=== PATIENT | female | born 1935 | race Caucasian/White ===

== ENCOUNTER → 2020-01-30 11:05 | Outpatient (ROUT) | payer SELFPAY ==
[2020-02-03 06:41] LABS: COVID19 Sendout Not Detected (Not Detected)
== END ==
PROVIDERS: Family Provider Internal Medicine; PCP Internal Medicine; Visit Provider Internal Medicine
DX: Z11.59 Encounter for screening for other viral diseases (principal)
CPT/HCPCS: 87635

== ENCOUNTER → 2021-04-06 12:19 | Outpatient (CLI) | payer MEDICARE, OTHER, SELFPAY ==
--- NOTE | 2021-04-06 | DI.CT.S_ITS ---
PROCEDURE: CT UE LT WO CON INDICATIONS: CANCEROUS MASS LEFT SHOULDER TECHNIQUE: Noncontrast 1-1.5 mm thick sections acquired from the acromioclavicular joint to the inferior scapula, with coronal and sagittal reformatting. COMPARISON: None. FINDINGS: Image quality: Excellent. Bones: No acute, displaced fracture or dislocation. No cortical destruction is appreciated. Mild AC joint arthrosis. Degenerative changes of the visualized cervical spine. Soft tissues: A 13.6 x 7.3 x 6.2 cm mass is seen within or adjacent to the deltoid. No suspicious axillary lymph nodes are appreciated. Centrilobular emphysematous changes of the lungs. IMPRESSION: Soft tissue mass within or adjacent to the deltoid as detailed above, consistent with the patient's known neoplastic process. Dictated by: Rich Guevara M.D. on 04/06/2021 at 16:00 Approved by: Rich Guevara M.D. on 04/06/2021 at 16:05
--- NOTE | 2021-04-06 | DI.MRI.S_ITS ---
PROCEDURE: MR SHOULDER LT WO/W CON INDICATIONS: CANCEROUS MASS OEFT SHOULDER TECHNIQUE: Noncontrast oblique coronal T1 spin echo and T2 fast spin echo with fat saturation, oblique sagittal T1 spin echo and T2 fast spin echo with fat saturation, axial T1 spin echo and T2 fast spin echo with fat saturation through the shoulder. Post-contrast oblique coronal, oblique sagittal, and axial T1 spin echo with fat saturation through the shoulder. COMPARISON: None. FINDINGS: Image quality: Images are degraded by motion artifact. Soft tissues: A 12.9 x 6.9 x 7.5 cm T2 hyperintense/T1 hypointense lesion is seen in the deltoid, which exhibits marked contrast enhancement. No abnormal axillary lymphadenopathy is appreciated. Bones: A 1.9 x 1.1 cm T2 hyperintense/T1 hypointense focus is seen in the humeral head (series 8, image 15), which demonstrates contrast enhancement and is concerning for intraosseous extension of the aforementioned soft tissue mass. 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 Dictated by: Rich Guevara M.D. on 04/06/2021 at 17:28 Approved by: Rich Guevara M.D. on 04/06/2021 at 17:39
== END ==
PROVIDERS: Family Provider Internal Medicine; PCP Family Medicine; Referring Provider Family Medicine; Visit Provider Family Medicine
DX: C49.12 Malignant neoplasm of connective and soft tissue of left upper limb, including shoulder; M19.012 Primary osteoarthritis, left shoulder
CPT/HCPCS: 73200; 73223; A9579